=== PATIENT | male | born 1960 | race Caucasian/White ===

== ENCOUNTER → 2021-02-02 | Outpatient (CLI) | payer SELFPAY | LOC: CARD 12:00 | PROVIDERS: ATTEND Nurse Practitioner Family | DX: R60.0 Localized edema (principal) | CPT/HCPCS: 93306 ==

== ENCOUNTER → 2021-03-19 | Outpatient (CLI) | payer SELFPAY ==
[2021-03-19 10:17] LABS: CREATININE SERUM 0.77 MG/DL (0.60-1.30); POTASSIUM 4.2 MMOL/L (3.6-5.0)
[2021-03-19 10:18] LABS: BILIRUBIN,TOTAL 0.5 MG/DL (0.1-1.0); CALCIUM 9.7 MG/DL (8.5-10.1); TOTAL PROTEIN 7.8 GM/DL (6.4-8.2)
[2021-03-19 10:19] LABS: ALBUMIN 3.9 GM/DL (3.2-4.5)
== END ==
LOC: RAD FS 09:16
PROVIDERS: ATTEND Nurse Practitioner Family
DX: R06.00 Dyspnea, unspecified (principal); R79.89 Other specified abnormal findings of blood chemistry; Z86.16 Personal history of COVID-19
CPT/HCPCS: 36415; 80053

== ENCOUNTER → 2021-04-28 | Outpatient (CLI) | payer SELFPAY ==
[~2021-04-28] MED LIST: CATHETER FLUSH 10 ML SYR IV PRN
--- NOTE | 2021-04-28 11:26 | Diagnostic Imaging Report ---
INDICATION: Dyspnea on exertion, Covid positive. CORRELATION STUDY: None . FINDINGS: Ventilation imaging was not performed. 5.39 mCi of technetium-99m MAA utilized for perfusion imaging. Multiplanar imaging demonstrates probable cardiac enlargement. Additionally, there is diminished perfusion at both lung bases, right greater than left; however, this does not appear to be of a segmental distribution. Definitive peripherally based perfusion defects to suggest pulmonary embolism are not present. IMPRESSION: Perfusion imaging demonstrates diminished perfusion of both lung bases, right greater than left; however, this is likely owing to presumed elevated right diaphragm. A definitive segmental defect to suggest pulmonary embolism is not suggested; however, I would recommend correlation with chest radiograph for further assessment. Dictated by: Dictated on workstation # [id number]
== END ==
LOC: CARD 10:31
PROVIDERS: ATTEND Nurse Practitioner Family
DX: R06.00 Dyspnea, unspecified (principal); R79.89 Other specified abnormal findings of blood chemistry
CPT/HCPCS: 78580; A9540

== ENCOUNTER → 2021-05-12 | Outpatient (CLI) | payer MEDICAID ==
[~2021-05-12] MED LIST changes: -CATHETER FLUSH 10 ML SYR IV PRN; +RT-ALBUTEROL SULF 2.5 MG/3 ML PRE-MIX VIAL INH ONE
== END ==
LOC: RT 12:45
PROVIDERS: ATTEND Nurse Practitioner Family
DX: R06.00 Dyspnea, unspecified (principal); Z86.16 Personal history of COVID-19
CPT/HCPCS: 94060; 94726; 94729

== ENCOUNTER → 2022-01-21 | Outpatient (CLI) | payer MEDICAID | LOC: CARDFS 12:48 | PROVIDERS: ATTEND Nurse Practitioner Family | DX: I51.7 Cardiomegaly (principal); R22.43 Localized swelling, mass and lump, lower limb, bilateral | CPT/HCPCS: 93306 ==

== ENCOUNTER → 2022-03-18 | Outpatient (CLI) | payer MEDICAID ==
--- NOTE | 2022-03-18 11:16 | Diagnostic Imaging Report ---
PROCEDURE: US Venous Lower Ext Jacobo. TECHNIQUE: Multiple real-time grayscale images were obtained over the lower extremities in various projections, bilaterally. Additional duplex Doppler and color Doppler images were also obtained. INDICATION: Bilateral lower extremity edema. FINDINGS: There is no evidence of right or left lower extremity DVT. Both lower extremity deep venous systems demonstrate normal compressibility with normal response to augmentation and Valsalva. No fluid collection or mass is detected. IMPRESSION: No evidence of right or left lower extremity DVT. Dictated by: Dictated on workstation # [id number]
== END ==
LOC: RAD FS 09:52
PROVIDERS: ATTEND Internal Medicine Cardiovascular Disease
DX: R60.0 Localized edema (principal)
CPT/HCPCS: 93970

== ENCOUNTER → 2022-04-01 | Outpatient (CLI) | payer MEDICAID ==
[2022-04-01 10:01] VITALS: BP 127/75
--- NOTE | 2022-04-01 11:31 | Cardiology Stress Test Report ---
Stress Test Report Date of Procedure/Referring: Date of Procedure: Apr 01, 2022 [facility] Admitting Physician Admitting Physician: Attending Physician: Kirill Negro Jr, MD Indications: Dyspnea on exertion Baseline Heart Rate: 84 Baseline Blood Pressure: Blood Pressure Systolic: 127 Blood Pressure Diastolic: 75 Baseline EKG: Baseline EKG: Sinus rhythm, normal tracing. Summary/Conclusion: PROCEDURE: The patient was exercised for a total of 42 seconds of the standard Cas protocol achieving a maximum level of 1.2. The resting heart rate was 84 bpm and the peak heart rate was 105 bpm, which represents 66% of the maximum predicted heart rate. The resting blood pressure was 127/75 mmHg. No peak blood pressure was obtained since the patient terminated the test early. The test was stopped due to dyspnea and unable to continue walking on the treadmill. There was no exercise-induced chest discomfort, arrhythmias, or electrocardiogram changes during the test. The patient exhibited poor exercise capacity for age. IMPRESSION: 1. Inconclusive test due to poor exercise tolerance. 2. There was no exercise-induced chest discomfort, arrhythmias, or electrocardiogram changes during the test but at a suboptimal heart rate response. 3. The patient exhibited poor exercise capacity for age at 42 seconds of the Cas protocol. 4. The patient may need a pharmacologic nuclear stress test for further evaluation if clinically indicated. Certain portions of this document may have been dictated utilizing voice recogni tion technology. Inherent to this technology, typographical and grammatical errors may exist. As much as I am diligent to identify and correct these mistakes, some errors may remain in the document. KIRILL NEGRO JR, MD Apr 01, 2022 11:31
== END ==
LOC: CARD 09:26
PROVIDERS: ATTEND Internal Medicine Cardiovascular Disease
DX: R06.09 Other forms of dyspnea (principal)
CPT/HCPCS: 93017

== ENCOUNTER 2022-04-07 20:15 | Outpatient (CLI) | payer MEDICAID | END 2022-04-08 03:20 | disposition home or self-care (01) | LOC: SLEEP 20:15 | PROVIDERS: ATTEND Internal Medicine Cardiovascular Disease | DX: G47.33 Obstructive sleep apnea (adult) (pediatric) (principal) | CPT/HCPCS: 95811 ==

== ENCOUNTER → 2022-06-24 | Outpatient (CLI) | payer MEDICAID ==
[~2022-06-24] MED LIST changes: +CATHETER FLUSH 10 ML SYR IVP PRN; +REGADENOSON 0.4 MG/5 ML SYR (LEXISCAN) IV ONE; -RT-ALBUTEROL SULF 2.5 MG/3 ML PRE-MIX VIAL INH ONE
[2022-06-24 08:58] VITALS: BP 163/80
--- NOTE | 2022-06-24 17:44 | NUCLEAR STRESS TEST ---
REGADENOSON NUCLEAR STRESS Date of procedure: 06/24/2022. Primary care provider: Elda Fischer APRN Admitting physician: Kirill Negro Jr., MD. INDICATION: Abnormal stress test. BASELINE ELECTROCARDIOGRAM: Sinus rhythm, unremarkable tracing. STRESS TEST PROCEDURE: The patient was administered 0.4 mg of intravenous Regadenoson. The resting heart rate was 81 bpm and the peak heart rate was 97 bpm. The resting blood pressure was 163/80 mmHg and the minimum blood pressure was 163/80 mmHg. This represents a normal heart rate and a blunted blood pressure response to Regadenoson with resting hypertension. The test was stopped due to the protocol. There was no chest discomfort during the test. There were no arrhythmias during the test. There were no significant stress induced electrocardiogram changes. NUCLEAR PROCEDURE: The patient was administered 8.8 mCi of intravenous technetium 99m Tetrofosmin at rest for the rest images. The patient was subsequently administered 23.8 mCi of intravenous technetium 99m Tetrofosmin at peak stress for the stress images. Following an appropriate wait after each injection, imaging was obtained. The images were subsequently processed and reformatted in the usual views. Gated imaging was obtained. The image quality was adequate with a moderate degree of gastrointestinal attenuation artifact. CT attenuation correction was used as a adjunct to standard imaging. Both the corrected and uncorrected images were reviewed for interpretation. NUCLEAR RESULTS: There was a large, moderate intensity, predominantly reversible mid to distal anterior and apical defect with a moderate amount of inducible ischemia with a summed stress score of 12 and a summed difference score of 9. There was normal left ventricular chamber size with an end-diastolic volume of 95 mL and an end-systolic volume of 32 mL. There was no evidence of transient ischemic dilatation. The TID ratio was 0.98. There was normal wall motion in all segments with a calculated ejection fraction of 66%. IMPRESSION: 1. Normal heart rate and blunted blood pressure response to regadenoson with resting hypertension. 2. There was no chest discomfort, arrhythmias, or electrocardiogram changes during the test. 3. There was a large, moderate intensity, predominantly reversible mid to distal anterior and apical defect with a moderate amount of inducible ischemia with a summed stress score of 12 and a summed difference score of 9. 4. There was normal wall motion in all segments with a calculated ejection fraction of 66%. 5. This is an abnormal result representing an overall moderate risk for possible future coronary ischemic events. Certain portions of this document may have been dictated utilizing voice recognition technology. Inherent to this technology, typographical and grammatical errors may exist. As much as I am diligent to identify and correct these mistakes, some errors may remain in the document. KIRILL NEGRO JR, MD Jun 24, 2022 17:44
== END ==
LOC: CARD 07:45
PROVIDERS: ATTEND Internal Medicine Cardiovascular Disease
DX: R94.39 Abnormal result of other cardiovascular function study (principal)
CPT/HCPCS: 78452; 93017; A9502

== ENCOUNTER → 2022-06-29 | Outpatient (CLI) | payer MEDICAID ==
[~2022-06-29] MED LIST changes: +ACET325T49 PO; +ASPI-999 PO; +ATOR10TA66 PO; -CATHETER FLUSH 10 ML SYR IVP PRN; +CELE200C PO; +CETI10TA17 PO; +FURO80TA3 PO; +GABA300C PO; +LOSA50TA63 PO; -REGADENOSON 0.4 MG/5 ML SYR (LEXISCAN) IV ONE; +SPIR25TA PO
[2022-06-29 09:35] LABS: BASOPHILS % (AUTO) 0 % (0-10); EOSINOPHILS # (AUTO) 0.2 10^3/uL (0.0-0.3); EOSINOPHILS % (AUTO) 3 % (0-10); HEMATOCRIT 38 % (40-54); HEMOGLOBIN 12.7 g/dL (13.3-17.7); LYMPHOCYTES # (AUTO) 1.4 10^3/uL (1.0-4.0); LYMPHOCYTES % (AUTO) 22 % (12-44); MEAN CORPUSCULAR HEMOGLOBIN 30 pg (25-34); MEAN CORPUSCULAR HGB CONC 34 g/dL (32-36); MEAN CORPUSCULAR VOLUME 89 fL (80-99); MONOCYTES # (AUTO) 0.5 10^3/uL (0.0-1.0); MONOCYTES % (AUTO) 8 % (0-12); NEUTROPHILS # (AUTO) 4.5 10^3/uL (1.8-7.8); NEUTROPHILS % (AUTO) 67 % (42-75); PLATELET COUNT 159 10^3/uL (130-400); WHITE BLOOD COUNT 6.7 10^3/uL (4.3-11.0)
[2022-06-29 10:26] LABS: CALCIUM 8.8 MG/DL (8.5-10.1); CREATININE SERUM 0.76 MG/DL (0.60-1.30); POTASSIUM 3.7 MMOL/L (3.6-5.0)
[2022-06-29 10:27] LABS: PROTHROMBIN TIME PATIENT 13.4 SEC (12.2-14.7)
== END ==
LOC: LAB FS 09:07
PROVIDERS: ATTEND Internal Medicine Cardiovascular Disease
DX: R94.39 Abnormal result of other cardiovascular function study (principal)
CPT/HCPCS: 36415; 80048; 85025; 85610

== ENCOUNTER 2022-07-01 07:53 | Day surgery (SDC) | payer MEDICAID ==
[~2022-07-01] VITALS: Ht 180 cm; Wt 142.4 kg
[2022-07-01] VITALS (15 sets, daily range): BP systolic 120–161; BP diastolic 53–123
[2022-07-01] MEDS ORDERED: ASPIRIN 81 MG CHEW (CHILDREN'S ASA) PO ONE (08:00)
[2022-07-01] MEDS ORDERED: CATHETER FLUSH 10 ML SYR IV PRN (08:00)
[2022-07-01] MEDS ORDERED: NS IV 1000 ML 1,000 ML IV ONE (08:00)
[2022-07-01] MEDS ORDERED: LIDOCAINE 1% INJ 30 ML (XYLOCAINE) VIAL ONE (08:04)
[2022-07-01] MEDS ORDERED: HEParin (CATH LAB) 2,000 ML IV ONE (08:04)
[2022-07-01] MEDS ORDERED: NS IV 1000 ML 1,000 ML ONE (08:04)
[2022-07-01] MEDS ORDERED: ASPIRIN 81 MG CHEW (CHILDREN'S ASA) ONE (08:13)
[2022-07-01] MEDS ORDERED: VERAPAMIL 5 MG/2 ML (CALAN) VIAL IV ONE (08:23)
[2022-07-01] MEDS ORDERED: fentaNYL INJ 100 MCG/2 ML AMP ONE (08:23)
[2022-07-01] MEDS ORDERED: NITRO DRIP 25000 MCG/D5W 250 ML IV ONE (08:24)
[2022-07-01] MEDS ORDERED: MIDAZOLAM 5 MG/5 ML (VERSED) VIAL ONE (08:24)
[2022-07-01] MEDS ORDERED: HEParin 1000 UNIT/ML (10ML VIAL) FOR BOLUS ONE (08:24)
[2022-07-01] MEDS ORDERED: CETI10TA17 PO (08:49)
[2022-07-01] MEDS ORDERED: FURO80TA3 PO (08:49)
[2022-07-01] MEDS ORDERED: GABA300C PO (08:49)
[2022-07-01] MEDS ORDERED: LOSA50TA63 PO (08:49)
[2022-07-01] MEDS ORDERED: ATOR10TA66 PO (08:49)
[2022-07-01] MEDS ORDERED: ASPI-999 PO (08:49)
[2022-07-01] MEDS ORDERED: ACET325T49 PO (08:49)
[2022-07-01] MEDS ORDERED: CELE200C PO (08:49)
[2022-07-01] MEDS ORDERED: SPIR25TA PO (08:49)
--- NOTE | 2022-07-01 09:41 | Pre-Op Note & Conscious Sedat ---
Pre-Operative Progress Note Date H&P Reviewed: Jul 01, 2022 Time H&P Reviewed: 09:39 History & Physical: H&P Reviewed, Patient Examed, No changes noted Changes from last HP Following the previous visit in the office, the patient underwent a nuclear stress test that showed a large, reversible mid to distal anterior and apical perfusion defect with a normal ejection fraction. In light of this abnormality, he is now referred for further evaluation with a cardiac catheterization. Pre-Op Diagnosis: Abnormal nuclear stress test Conscious Sedation Pre-Proced ASA Score 2 For ASA 3 and 4: Consider anesthesia and medical clearance. Also, for patients with a history of failed moderate sedation consider anesthesia. Airway Lungs Heart ASA score ASA 1: a normal healthy patient ASA 2: a patient with a mild systemic disease (mid diabetes, controlled hypertension, obesity ASA 3: a patient with a severe systemic disease that limits activity (angina, COPD, prior Myocardial infarction) ASA 4: a patient with an incapacitating disease that is a constant threat to life (CHF, renal failure) ASA 5: a moribund patient not expected to survive 24 hrs. (ruptured aneurysm) ASA 6: a declared brain- patient whose organs are being harvested. For emergent operations, add the letter E after the classification Mallampati Classification Grade 2 Sedation Plan Analgesia, Amnesia, Plan communicated to team members, Discussed options with patient/fam, Discussed risks with patient/fam The patient is an appropriate candidate to undergo the planned procedure, sedation, and anesthesia. The patient immediately re-assessed prior to indication. Given his current clinical status, he is considered vulnerable. He has no history of heart failure. JOSELO AGUILERA JR, MD Jul 01, 2022 09:41
--- NOTE | 2022-07-01 11:38 | Cardiac Cath Report ---
CARDIAC CATHETERIZATION DATE OF PROCEDURE: 07/01/2022 INDICATION: Abnormal nuclear stress test. HISTORY: The patient is a 61 year old male with no known history of coronary artery disease who presented to my office due to dyspnea on exertion. Initially had him undergo a treadmill stress test but this was indeterminate due to a suboptimal heart rate response. He subsequently underwent a pharmacological nuclear stress test that showed a large anterior ischemic defect with a normal ejection fraction. In light of this abnormal stress test, he is now referred for further evaluation with a cardiac catheterization. PROCEDURES PERFORMED: 1. Left heart catheterization with hemodynamic measurements. 2. Diagnostic [place] coronary angiography. PROCEDURE DESCRIPTION: After informed consent and in the fasting state, left heart catheterization was performed through the right radial artery utilizing a 6 [place] system by percutaneous approach. Standard 5 [place] Kirsten catheters were utilized for the diagnostic portion of the procedure. All catheters were exchanged over a guidewire. Following the procedure, a vascular band was applied to the radial artery access site and the sheath was removed with good hemostasis. RESULTS: HEMODYNAMICS: The aortic pressure was 129/82 mmHg. The left ventricular pressure was 140/0 mmHg with a left ventricular end-diastolic pressure of 15 mmHg. There was no significant pressure gradient upon pullback across aortic valve. CORONARY ANGIOGRAPHY: Left main coronary artery: Free of significant disease. Left anterior descending coronary artery: There was a 50% stenosis in the midportion of the vessel and the distal vessel tapered rapidly in the distal third. Left circumflex coronary artery: Free of significant disease. Right coronary artery: Very large in caliber, dominant and there was a 50% stenosis in the midsegment with LEANDRA-3 flow. IMPRESSION: 1. Elevated left ventricular end-diastolic pressure. 2. Moderate two-vessel coronary artery disease in a right dominant system involving the left anterior descending and right coronary arteries as outlined above. 3. The patient is known to have normal left ventricular systolic function with a calculated ejection fraction of 66% by nuclear stress test that was performed on 06/24/2022. Certain portions of this document may have been dictated utilizing voice recognition technology. Inherent to this technology, typographical and grammatical errors may exist. As much as I am diligent to identify and correct these mistakes, some errors may remain in the document. JOSELO AGUILERA JR, MD Jul 01, 2022 11:38
[2022-07-01] MEDS ORDERED: NS IV 1000 ML 1,000 ML IV SCH (11:45)
== END 2022-07-01 15:25 | disposition home or self-care (01) ==
LOC: CATH 07:53 → ICU 11:59 → CATH 15:25
PROVIDERS: ATTEND Internal Medicine Cardiovascular Disease
DX: I25.10 Atherosclerotic heart disease of native coronary artery without angina pectoris (principal)
CPT/HCPCS: 87081; 93458; C1894